=== PATIENT | female | born 1965 | race Caucasian/White ===

== ENCOUNTER 2018-07-17 11:06 | Emergency (ER) | payer BC ==
[~2018-07-17] VITALS: Ht 167.6 cm; Wt 68.0 kg
[~2018-07-17 11:06] MED LIST: IMITREX 25 MG T25 M1 PO; MIRALAX17 GM PO; PROTONIX 20 MG20 M1 PO; TOPAMAX 100 MG100 MG PO; TRAMADOL 50 MG50 MG PO; VESICARE 5 MG TA5 MG PO; ZOLOFT50 MG PO
[2018-07-17] MEDS ORDERED: LIPITOR 20 MG T20 M1 PO (11:15)
[2018-07-17] MEDS ORDERED: FOSAMAX 70 MG T70 MG PO (11:15)
[2018-07-17 11:32] LABS: ABSOLUTE BASOPHILS 0.1 thou/uL (0.0-0.2); ABSOLUTE EOSINOPHILS 0.3 thou/uL (0.0-0.7); ABSOLUTE LYMPHOCYTES 1.5 thou/uL (0.8-5.3); ABSOLUTE MONOCYTES 0.4 thou/uL (0.0-1.2); ABSOLUTE NEUTROPHILS 2.8 thou/uL (1.6-8.1); BASOPHILS 1.2 %; EOSINOPHILS 6.1 %; HEMATOCRIT 44.6 % (37.0-47.0); HEMOGLOBIN 14.7 gm/dL (12.0-15.0); LYMPHOCYTES 29.8 %; MCH 30.3 pg (26.0-34.0); MCHC 33.1 g/dL (28.0-37.0); MCV 91.6 fL (80.0-100.0); MONOCYTES 8.6 %; MPV 8.6 fl. (7.2-11.1); NUCLEATED RBCS 0 /100WBC; PLATELET COUNT* 223 thou/uL (150-400); POLYS 54.3 %; RBC 4.87 mil/uL (4.20-5.00); RDW-CV 12.9 % (10.5-14.5); WBC 5.1 thou/uL (4.0-11.0)
[2018-07-17 11:41] LABS: APTT 25.7 Seconds (25.0-31.3); PROTIME 9.9 Seconds (9.20-11.50)
[2018-07-17 11:49] LABS: ANION GAP 8 mmol/L (7-16); BUN 18 mg/dL (7-18); CALCIUM 8.5 mg/dL (8.5-10.1); CHLORIDE 107 mmol/L (98-107); CO2 24 mmol/L (21-32); GLUCOSE 89 mg/dL (70-99); POTASSIUM 4.1 mmol/L (3.5-5.1); SODIUM 139 mmol/L (136-145); TROPONIN-I LEVEL <0.06 ng/mL (<0.06)
[2018-07-17 11:50] LABS: ALKALINE PHOSPHATASE 54 U/L (46-116); CK-MB MASS 0.7 ng/mL (<0.5-3.6); LIPASE 141 U/L (73-393); MAGNESIUM 2.1 mg/dL (1.8-2.4); NT-PRO BRAIN NAT PEPTIDE 33 pg/mL (<300); SGOT 15 U/L (15-37); SGPT 18 U/L (30-65); TOTAL BILIRUBIN 0.3 mg/dL (<0.1-1.0); TOTAL PROTEIN 7.9 g/dL (6.4-8.2)
[2018-07-17 12:00] VITALS: BP 112/67
--- NOTE | 2018-07-17 16:10 | EKG ---
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: : 1965 Requested By: Liang Dixon Order Number: [id number] MD: Agustin Harrell Measurements Intervals [place] Rate: 66 P: 38 UT: 134 QRS: 72 QRSD: 99 T: 49 QT: 408 QTc: 428 Interpretive Statements Sinus rhythm Baseline wander in lead(s) V3 Compared to ECG 09/25/2014 20:15:56 ST (T wave) deviation no longer present Prolonged QT interval no longer present Electronically Signed On 07-17-2018 16:10:16 [employer] by Agustin Harrell [email or web address] <ELECTRONICALLY SIGNED> By: Agustin Harrell MD, [facility] 07/17/18 1610 1111 1111 Agustin Harrell MD, FAC /EPI
== END 2018-07-17 12:09 | disposition home or self-care (01) ==
LOC: M.ERS 11:06
PROVIDERS: Family Medicine
DX: R07.89 Other chest pain (principal); G43.909 Migraine, unspecified, not intractable, without status migrainosus; Z88.5 Allergy status to narcotic agent; Z90.49 Acquired absence of other specified parts of digestive tract; Z90.710 Acquired absence of both cervix and uterus